=== PATIENT | male | born 1965 | race Caucasian/White ===

== ENCOUNTER 2018-10-15 15:36 | Outpatient (CLI) | payer BC ==
[~2018-10-15] VITALS: Ht 170.2 cm; Wt 158.8 kg
[~2018-10-15 15:36] MED LIST: ACHD5005 PO; ASCO100083 PO; ASCO125T PO; ASP81TEC PO; BENZ200C51 PO; CEPH500C PO; CIPR500T78 PO; CLIN300C3 PO; CPR500T PO; DCS100C PO; EFFEXOR; GABA300C PO; HYDR-229 PO; HYDR-623 PO; HYDR1TAB66 PO; INSU100I10 SQ; LIRA0.6P SQ; LISI10TA PO; LOSA25TA5 PO; LOSA50TA6 PO; MELO-198 PO; MELO15TA14 PO; METF-380 PO; METR500T PO; MTP25TSR PO; MULT-974 PO; NAPR-243 PO; OMEG1CAP51 PO; ONDA8TAB9 PO; ONDAN4ODT PO; ONDN4T PO; PGLT30T PO; PNT40TEC PO; PRD20T PO; RANI-10 PO; RANI75TA30 PO; RT-ALBUINH IH; SIMV80TA3 PO; TRM50T PO; niacin PO
[2018-10-15] MEDS ORDERED: SIMV80TA5 PO (15:39)
[2018-10-15] MEDS ORDERED: CETI10TA20 PO (15:39)
[2018-10-15] MEDS ORDERED: METO-370 PO (15:39)
[2018-10-15] MEDS ORDERED: GLIP5TAB13 PO (15:39)
[2018-10-15] MEDS ORDERED: MELO7.5T46 PO (15:39)
[2018-10-15] MEDS ORDERED: INSU100I32 SQ (15:39)
[2018-10-15] MEDS ORDERED: HYDR25TA4 PO (15:39)
[2018-10-15] MEDS ORDERED: TRAM300T24 PO (15:39)
[2018-10-15] MEDS ORDERED: PIOG30TA71 PO (15:39)
[2018-10-15] MEDS ORDERED: LOSA25TA6 PO (15:39)
[2018-10-15] MEDS ORDERED: MULT-1106 PO (15:39)
[2018-10-15] MEDS ORDERED: LOSA50TA7 PO (15:42)
[2018-10-15] MEDS ORDERED: GLIP5TAB26 PO (15:42)
[2018-10-15] MEDS ORDERED: PIOG45TA65 PO (15:42)
[2018-10-15] MEDS ORDERED: DAPA10TA PO (15:45)
== END 2018-10-15 15:43 | disposition home or self-care (01) ==
LOC: PREOP 15:36
PROVIDERS: ATTEND Surgery
DX: Z01.818 Encounter for other preprocedural examination (principal)

== ENCOUNTER → 2021-04-19 | Outpatient (CLI) | payer BC ==
[~2021-04-19] VITALS: Ht 170.2 cm; Wt 163.3 kg
[~2021-04-19] MED LIST changes: +CETI10TA49 PO; +DAPA10TA PO; +DAPA1TAB5 PO; +DOXY100C2 PO; +GLIP10TA13 PO; +GLIP5TAB13 PO; +GLIP5TAB26 PO; +HYDR25TA4 PO; +INSU100I32 SQ; +LOSA25TA41 PO; +LOSA50TA63 PO; +MELO10CA3 PO; +MELO7.5T46 PO; +METF-399 PO; +METH8TAB5 PO; +METO50TA7 PO; +MULT-1106 PO; +PIOG30TA71 PO; +PIOG45TA65 PO; +SIMV80TA21 PO; +TRAM300T24 PO
== END | disposition home or self-care (01) ==
LOC: PREOP 05:37
PROVIDERS: ATTEND Surgery
DX: Z01.818 Encounter for other preprocedural examination (principal)

== ENCOUNTER 2021-04-27 09:31 | Day surgery (SDC) | payer BC ==
[~2021-04-27] VITALS: Ht 170.2 cm; Wt 163.2 kg
[2021-04-27] MEDS ORDERED: LACTATED RINGERS 1,000 ML IV ONE (09:40)
[2021-04-27 09:50] VITALS: BP 158/89
[2021-04-27] MEDS ORDERED: LACTATED RINGERS 1,000 ML IV STA (09:57)
--- NOTE | 2021-04-27 11:10 | Progress Note-Pre Operative ---
Pre-Operative Progress Note H&P Reviewed The H&P was reviewed, patient examined and no changes noted. Date Seen by Provider: Apr 27, 2021 Time Seen by Provider: 11:10 Date H&P Reviewed: Apr 27, 2021 Time H&P Reviewed: 11:10 Pre-Operative Diagnosis: blood in stool, hx diverticulitis AUBREY YAÑEZ DO Apr 27, 2021 11:10
[2021-04-27] MEDS ORDERED: MIDAZOLAM 2 MG/2 ML (VERSED) VIAL ONE (11:15)
[2021-04-27] MEDS ORDERED: PROPOFOL INJECTION 50 ML IV ONE (11:15)
[2021-04-27] MEDS ORDERED: KETAMINE SYRINGE 50 MG/5 ML SYRINGE ONE (11:35)
[2021-04-27 11:55] VITALS: BP 117/73
--- NOTE | 2021-04-27 11:58 | Progress Note-Post Operative ---
Post-Operative Progess Note Surgeon (s)/Bus Boy (s) Surgeon AUBREY YAÑEZ DO Bus Boy: NA Pre-Operative Diagnosis blood in stool, hx diverticulitis Post-Operative Diagnosis Internal hemorrhoids Procedure & Operative Findings Date of Procedure 04/27/21 Procedure Performed/Findings colonoscopy Anesthesia Type per piston maker Estimated Blood Loss Estimated blood loss (mL): none Specimens/Packing Specimens Removed na AUBREY YAÑEZ DO Apr 27, 2021 11:58
[2021-04-27 12:00] VITALS: BP_SYST 126; BP_SYST 132; BP_DIAS 61; BP_DIAS 66
--- NOTE | 2021-04-27 12:00 | Discharge Inst-Simple/Standard ---
Discharge Inst-Standard Patient Instructions/Follow Up Plan of Care/Instructions/FU: Kelly 10 years unless family hx colon cancer or history of polyps which would be 5 years. Any issues before that be seen at that time. If you have further bleeding be seen at that time. Activity as Tolerated: Yes Discharge Diet: Regular Diet (high fiber) AUBREY YAÑEZ DO Apr 27, 2021 12:00
[2021-04-27 12:25] VITALS: BP 120/72
[2021-04-27 12:30] VITALS: BP 120/72
--- NOTE | 2021-04-27 15:08 | Anesthesia-General Post-Op ---
MAC Patient Condition Mental Status/LOC: Same as Preop Cardiovascular: Satisfactory Nausea/Vomiting: Absent Respiratory: Satisfactory Pain: Controlled Complications: Absent Post Op Complications Complications None Follow Up Care/Instructions Patient Instructions None needed. Anesthesiology Discharge Order Discharge Order Patient is doing well, no complaints, stable vital signs, no apparent adverse anesthesia problems. No complications reported per nursing. JUANITA MAYNARD CRNA Apr 27, 2021 15:08
--- NOTE | 2021-04-27 18:14 | OPERATIVE REPORT ---
DATE OF SERVICE: 04/27/2021 PREOPERATIVE DIAGNOSIS: Bright red blood in stools, history of diverticulitis. POSTOPERATIVE DIAGNOSIS: Hemorrhoids. PROCEDURE: Colonoscopy. SURGEON: Aubrey Mendoza DO ANESTHESIA: Per CHIEF LENDING OFFICER. ESTIMATED BLOOD LOSS: None. COMPLICATIONS: None. INDICATIONS: The patient is a 55-year-old male needing colonoscopy for further evaluation of bright red blood per rectum. He understands risks and benefits of procedure and wished to proceed. Consent was signed in the chart. DESCRIPTION OF PROCEDURE: The patient was taken to the endoscopy suite, placed in left lateral recumbent position. Timeout was performed. Digital rectal exam was performed. No palpable polyps, masses or ulcerations. Scope was inserted in the rectum, advanced all the way to cecum with minimal difficulty. Prep was adequate with irrigation and suction. Scope was then slowly retracted back. No polyps, masses or ulcerations within the cecum, ascending, transverse, descending and sigmoid colon. Once in the rectum, scope was retroflexed noting internal hemorrhoids. No other pathology. Scope was returned to its normal position, slowly withdrawn until completely removed, noting no other pathology. The patient tolerated procedure well without any complications and is taken to recovery room in stable condition. RECOMMENDATIONS: The patient will need repeat colonoscopy in 10 years unless family history of colon cancer, history of polyps, which would then be 5 years. Any issues before that be seen at that time. We would consider hemorrhoid energy therapy to treat hemorrhoids if continues to have bleeding. The patient to follow up on an as needed basis. Job ID: [id number] DocumentID: [id number] Dictated Date: 04/27/2021 12:48:51 Layout Artist Date: 04/27/2021 18:13:10 Dictated By: AUBREY MENDOZA DO
== END 2021-04-27 12:32 | disposition home or self-care (01) ==
LOC: ENDO 09:31
PROVIDERS: ATTEND Surgery
DX: K64.8 Other hemorrhoids (principal); K57.30 Diverticulosis of large intestine without perforation or abscess without bleeding; I10 Essential (primary) hypertension; G47.33 Obstructive sleep apnea (adult) (pediatric); K21.9 Gastro-esophageal reflux disease without esophagitis; E11.9 Type 2 diabetes mellitus without complications; K43.2 Incisional hernia without obstruction or gangrene; E66.01 Morbid (severe) obesity due to excess calories; Z68.43 Body mass index [BMI] 50.0-59.9, adult; Z79.899 Other long term (current) drug therapy; Z79.84 Long term (current) use of oral hypoglycemic drugs; Z87.19 Personal history of other diseases of the digestive system

== ENCOUNTER 2023-03-13 10:05 | Emergency (ER) | payer OTHER, BC ==
[~2023-03-13] VITALS: Ht 170.1 cm; Wt 163.2 kg
[~2023-03-13 10:05] MED LIST changes: +ALBU8.5H6 IH; -DOXY100C2 PO; +DOXY100C5 PO; -RT-ALBUINH IH; -TRAM300T24 PO; +[UNRECOGNIZED DRUG - CODE] PO
[2023-03-13 10:10] VITALS: BP 145/78
--- NOTE | 2023-03-13 10:28 | ED Lower Extremity ---
General Chief Complaint: Lower Extremity Stated Complaint: RT LOWER EXTREMITY/KNEE INJ Source: patient Exam Limitations: no limitations History of Present Illness Date Seen by Provider: March 13, 2023 Time Seen by Provider: 10:17 Initial Comments 57-year-old male presents to the emergency department today for right knee pain. Had an injury at work the other day where he tripped with his left leg and put his right leg out to brace himself. He feels he hyperextended the knee. He has had pain since that time. He has been using ice at home with some relief. He tells me the pain is actually better with ambulation and movement and hurts worse at rest. The knee joint itself is not giving out. All other systems reviewed and negative except documented per HPI. Voice recognition software was used to help create this chart Allergies and Home Medications Allergies Coded Allergies: liraglutide (Verified Allergy, Unknown, 02/08/13) Patient Home Medication List Home Medication List Reviewed: Yes Dapagliflozin/Metformin HCl (Xigduo Xr 10 mg-1,000 mg Tab) 1 Each Tab.bp.24h, 1 EACH PO DAILY, (Reported) Entered as Reported by: ADA BANSAL on 04/19/21910 Doxycycline Hyclate (Doxycycline Hyclate) 100 Mg Capsule, 100 MG PO BID, (Reported) Entered as Reported by: ADA BANSAL on 04/19/21910 Glipizide (Glipizide) 10 Mg Tablet, 10 MG PO DAILY, (Reported) Entered as Reported by: ADA BANSAL on 04/19/21910 Hydrochlorothiazide (Hydrochlorothiazide) 25 Mg Tablet, 25 MG PO DAILY, (Reported) Entered as Reported by: JESSICA LOMAS on 10/15/18 153 Insulin Degludec (Tresiba Flextouch U-100) 100 Unit/1 Ml Insuln.pen, 80 UNIT SQ HS, (Reported) Entered as Reported by: JESSICA LOMAS on 10/15/18 153 Losartan Potassium (Losartan Potassium) 50 Mg Tablet, 50 MG PO DAILY, (Reported) Entered as Reported by: JESSICA LOMAS on 10/15/18 1542 Meloxicam, Submicronized (Meloxicam) 10 Mg Capsule, 15 MG PO DAILY, (Reported) Entered as Reported by: ADA BANSAL on 04/19/21 09 Metformin HCl (Metformin HCl) 1,000 Mg Tablet, 1,000 MG PO BID, (Reported) Entered as Reported by: ADA BANSAL on 04/19/21 09 Methylprednisolone (Methylprednisolone) 8 Mg Tablet, 4 MG PO DAILY, (Reported) Entered as Reported by: ADA BANSAL on 04/19/21 09 Metoprolol Succinate (Metoprolol Succinate) 50 Mg Tab.er.24h, 50 MG PO DAILY, (Reported) Entered as Reported by: JESSICA LOMAS on 10/15/18 1539 Pioglitazone HCl (Pioglitazone HCl) 45 Mg Tablet, 45 MG PO DAILY, (Reported) Entered as Reported by: JESSICA LOMAS on 10/15/18 1542 Simvastatin (Simvastatin) 80 Mg Tablet, 80 MG PO HS, (Reported) Entered as Reported by: JESSICA LOMAS on 10/15/18 1539 Review of Systems Constitutional: see HPI Past Zptfxew-[id number]-Xgejyd Hx Patient Social History Tobacco Use?: No Use of E-Cig and/or Vaping dev: No Substance use?: No Alcohol Use?: No Seasonal Allergies Seasonal Allergies: No Past Medical History Surgeries: Yes (DENTAL, bilat elbows, neck fusion) Gallbladder, Orthopedic Respiratory: Yes (CPAP @ NOC) Sleep Apnea Currently Using CPAP: Yes Cardiac: Yes Hypertension Neurological: No Genitourinary: Yes Kidney Stones Gastrointestinal: Yes Gastroesophageal Reflux, Diverticulosis, Polyps Musculoskeletal: Yes Chronic Back Pain Endocrine: Yes Diabetes, Insulin dep HEENT: No Cancer: No Psychosocial: No Integumentary: No Blood Disorders: No Adverse Reaction/Blood Tranf: No Family Medical History Reviewed Nursing Family Hx No Pertinent Family Hx Physical Exam Vital Signs Capillary Refill : Height, Weight, BMI Height: 5'7.00" Weight: 350lbs. 0.0oz. 158.489014ym; 56.33 BMI Method:Stated General Appearance: WD/WN, no apparent distress HEENT: normal ENT inspection, pharynx normal Hips: bilateral hip non-tender, bilateral hip normal inspection, bilateral hip normal range of motion Legs: bilateral leg non-tender, bilateral leg normal inspection, bilateral leg normal range of motion Knees: left knee non-tender, left knee normal inspection, left knee normal range of motion; right knee other (Tenderness palpation anterior joint line and posteriorly in the popliteal fossa. Neurovascular and sensory intact. Joint overall stable negative varus valgus stress testing, anterior posterior drawer Shiva and Hannah. Neurovascular motor and sensory intact distally.) Feet: bilateral foot non-tender, bilateral foot normal inspection, bilateral foot normal range of motion Neurologic/Tendon: normal sensation, normal motor functions, normal tendon functions Departure Communication (Admissions) Patient is hemodynamically stable. Neurovascular motor and sensory intact. No evidence of bony injury and his pain is in fact better when he ambulates and moves the joint. No indication for imaging at this time. No evidence for DVT, or other emergent medical condition. Discharged in stable condition with supportive care. Impression Primary Impression: Right knee sprain Qualified Codes: S83.91XA - Sprain of unspecified site of right knee, initial encounter Disposition: 01 HOME, SELF-CARE Condition: Stable Departure-Patient Inst. Referrals: RIVERA RAHMAN (PCP/Family) Primary Care Physician Patient Instructions: Knee Sprain ED EJ HANDY DO March 13, 2023 10:28
== END 2023-03-13 10:35 | disposition home or self-care (01) ==
LOC: EDUNIT# 10:05 → ER 10:08
DX: S83.8X1A Sprain of other specified parts of right knee, initial encounter (principal); G47.30 Sleep apnea, unspecified; Z99.89 Dependence on other enabling machines and devices; W18.40XA Slipping, tripping and stumbling without falling, unspecified, initial encounter; Y92.59 Other trade areas as the place of occurrence of the external cause; Y99.0 Civilian activity done for income or pay
CPT/HCPCS: 99281